=== PATIENT | female | born 1990 | race Caucasian/White ===

== ENCOUNTER 2023-12-16 21:13 | Emergency (ER) | payer MEDICAID ==
[~2023-12-16] VITALS: Ht 167.6 cm; Wt 59.1 kg
[2023-12-16 21:25] VITALS: O2SAT 96
[2023-12-16] MEDS ORDERED: AMOX-101 PO (23:30)
[2023-12-16 23:42] VITALS: BP 145/82; PULSE 64; RESP 16; TEMP 98
== END 2023-12-16 23:43 | disposition home or self-care (01) ==
LOC: ER 21:19
DX: T16.2XXA Foreign body in left ear, initial encounter (principal); T16.1XXA Foreign body in right ear, initial encounter; K08.89 Other specified disorders of teeth and supporting structures; W44.8XXA Other foreign body entering into or through a natural orifice, initial encounter; Y93.89 Activity, other specified; Y92.89 Other specified places as the place of occurrence of the external cause; Y99.8 Other external cause status
CPT/HCPCS: 69200; 99284

== ENCOUNTER 2024-01-11 20:08 | Emergency (ER) | payer MEDICAID ==
[~2024-01-11] VITALS: Ht 167.6 cm; Wt 64.2 kg
[2024-01-11 20:28] VITALS: BP 119/78; PULSE 77; RESP 18; TEMP 98.6; O2SAT 98
[2024-01-11] MEDS ORDERED: SULF1TAB49 PO (20:49)
[2024-01-11] MEDS ORDERED: cephalexin 250mg capsule PO ONE (20:50)
[2024-01-11] MEDS: sulfamethoxazole/trimethoprim DS (800/160mg) tablet PO ONE (21:05)
== END 2024-01-11 21:23 | disposition home or self-care (01) ==
LOC: ER 20:09
DX: L03.114 Cellulitis of left upper limb (principal); Z79.899 Other long term (current) drug therapy
CPT/HCPCS: 99283

== ENCOUNTER 2024-05-25 19:21 | Emergency (ER) | payer MEDICAID ==
[~2024-05-25] VITALS: Ht 167.6 cm; Wt 68.2 kg
[2024-05-25] MEDS ORDERED: AMOX-580 PO (21:10)
[2024-05-25 21:20] VITALS: BP 155/99; PULSE 96; RESP 16; TEMP 98.6; O2SAT 99
== END 2024-05-25 21:22 | disposition home or self-care (01) ==
LOC: ER 19:21
DX: H66.92 Otitis media, unspecified, left ear (principal)
CPT/HCPCS: 99283

== ENCOUNTER 2024-10-21 11:31 | Emergency (ER) | payer MEDICAID ==
[~2024-10-21] VITALS: Ht 167.6 cm; Wt 67.3 kg
[2024-10-21 11:33] VITALS: BP 103/70; PULSE 97; O2SAT 100
--- NOTE | 2024-10-21 12:28 | Physician Documentation ---
History of Present Illness ~ Chief Complaint: Back Pain Stated Complaint: TAILBONE PAIN Time Seen by MD: 13:08 HPI 34-year-old female presents to the ED with a complaint of 2-3 days of sacral pain. She thought it would get better but she is having hard time sitting thinks she may have broke something for Medication Reconciliation Allergies: Coded Allergies: No Known Allergies (Unverified , 05/25/24) Physical Exam Physical Exam Vital Signs: Temperature: 97.6, Source: Temporal, Heart Rate: 97, Respiratory Rate: 15, BP: 103/70, Pulse Oximetry: 100, Weight: 67.300 Physical Exam General: Alert, no apparent distress. back: To lumbosacral region no obvious step-offs or deformity Psychiatric: Normal mood and affect. Skin: Normal color, warm and dry. No edema, no ecchymosis. Progress Results/Orders Results/Orders Orders - [facility] [employer] Sacrum & Coccyx (10/21/24 11:36) Completed Orders - [facility] [employer] Sacrum & Coccyx (10/21/24 11:36) Ketorolac Trometh 30mg/Ml Vial (Toradol (10/21/24 13:15) Medications Received in ER Medications (Trade) Dose Ordered Sig/Morris Route PRN Reason Start Time Stop Time Status Last Admin Dose Admin (Toradol inj. 30mg/ml) 30 mg ONCE ONCE IM 10/21/24 13:15 10/21/24 13:16 DC 10/21/24 13:49 30 MG Vital Signs 10/21/24 10/21/24 10/21/24 11:33 13:49 13:53 Temp 97.6 97.6 Pulse 97 Resp 15 16 B/P (MAP) 103/70 Pulse Ox 100 Medical Decision Making Findings does Not appreciate any signs of acute fracture on the sacral region. The treated the patient with Toradol advised her to take ibuprofen. She did not present with any red flag symptoms including numbness tingling or incontinence or fever Differential Dx:Considerations: Include: AAA, Aortic dissection, , Appendicitis, Bowel obstruction, Cholelithiasis, Cholangitis, DJD, Ectopic , Fracture, Hepatitis, HNP, Musculoskeletal pain, Pancreatitis, Pyelonephritis, Strain, Urinary obstruction, Urolithiasis, Ovarian torsion, Other Departure Disposition: 01 HOME / SELF CARE / HOMELESS Impression: Primary Impression: Back problem Discharge Instructions: Acute Back Pain, Adult Additional Instructions: Take ibuprofen for pain and inflammation. Persistent pain however recommend going to see her primary care for physical therapy and further evaluation. Worsening symptoms feel free to return to the ED Referrals: NO PRIMARY CARE PROVIDER (PCP) Education Educated: Patient Signature Scribe Signature: f Attestation: Scribed for [facility] [employer] by Lane Preston NP . 10/21/24 18:[address] [facility] NP Oct 21, 2024 12:28
--- NOTE | 2024-10-21 12:53 | RADIOLOGY REPORT ---
CLINICAL INDICATION: Trauma TECHNIQUE: 3 radiographic views of the sacrum/coccyx were obtained. Comparison: None FINDINGS/IMPRESSION: There is no evidence of acute fracture or dislocation. The visualized joint space is well maintained. The alignment is anatomical. There is no radiopaque foreign body.
[2024-10-21 13:49] VITALS: RESP 16
[2024-10-21] MEDS: ketorolac trometh 30MG/ML vial 30 MG/ML VIAL IM ONE (13:49)
[2024-10-21 13:53] VITALS: TEMP 97.6
== END 2024-10-21 13:54 | disposition home or self-care (01) ==
LOC: ER 11:32
DX: M54.9 Dorsalgia, unspecified (principal)
CPT/HCPCS: 72220; 96372; 99283; J1885